=== PATIENT | male | born 2000 | race Caucasian/White ===

== ENCOUNTER → 2022-11-09 14:07 | Outpatient (CLI) | payer BC, SELFPAY ==
--- NOTE | ~2022-11-09 | XR_ITS ---
EXAMINATION: XR chest 2V DATE: 11/09/2022 14:23 INDICATION: Cough TECHNIQUE: PA and lateral views of the chest are obtained. COMPARISON: None available FINDINGS: The lungs are free of acute opacities. No pleural effusion or pneumothorax. The cardiomedia stinal silhouette is normal. The visualized bones and soft tissues are unremarkable. IMPRESSION: 1. No acute cardiopulmonary abnormality. Reviewed, dictated and finalized at location L.
== END ==
PROVIDERS: PCP Internal Medicine; Visit Provider Internal Medicine
DX: R05.9 Cough, unspecified (principal)
CPT/HCPCS: 71046